=== PATIENT | male | born 1980 | race Hispanic/Latino ===

== ENCOUNTER 2022-05-23 11:41 | Emergency (ER) | payer BC, SELFPAY ==
[2022-05-23 11:55] VITALS: BP 124/84; PULSE 77; RESP 16; TEMP 37.2; O2SAT 99
--- NOTE | 2022-05-23 12:00 | ED.URI ---
HPI - URI/Sore Throat General Chief Complaint: Upper Respiratory Infection Stated Complaint: sore throat, head congestion, runny nose Time Seen by Provider: 05/23/22 12:06 Source: patient and RN notes reviewed Mode of arrival: ambulatory Limitations: no limitations History of Present Illness HPI Narrative: 41 y/o male presented for c/o headache, body aches, sinus pressure/congestion, cough, fever/chills. Onset yesterday. He did not take anything for symptoms today. Denies sob, wheezing, vomiting or diarrhea. Denies known sick contacts but has been air traveling for work. He is from [place]. elicited complaint: cough Related Data Home Medications Medication Instructions Recorded Confirmed No Home Medications 05/23/22 05/23/22 Allergies Allergy/AdvReac Type Severity Reaction Status Date / Time No Known Allergies Allergy Verified 05/23/22 12:12 Review of Systems Review of Systems: CONSTITUTIONAL: Endorses malaise, chills, sweats, fever EYES: Denies visual changes, redness, or discharge ENT: per HPI CARDIOVASCULAR: Denies chest pain, palpitations, edema RESPIRATORY: Reports cough, post nasal drainage. Denies dyspnea GASTROINTESTINAL: Denies abdominal pain, nausea, vomiting, diarrhea SKIN: Denies rash or itching MUSCULOSKELETAL: Endorses myalgia NEUROLOGIC: Endorses headache Exam Narrative: GENERAL: Ill-appearing, nontoxic EYES: PERRLA, conjunctivae clear ENT: Mucous membranes moist. TMs pearly kinsey with dull light reflex bilaterally; no tragal tenderness. Oropharynx erythematous without lesions or exudate CHEST: Clear to auscultation, breath sounds equal. HEART: Regular rate and rhythm. No murmur heard. SKIN: Warm, dry, no rash. NEURO: Alert and oriented x3. PSYCH: Normal mood and affect Course Course Emergency Course: Patient is aware of diagnosis, understands and agrees to treatment plan. Anticipatory guidance given. Patient agrees to follow-up as directed and is aware of reasons to seek care at the emergency department. Portions of this record may have been created with voice recognition software Level of Care: Express Care Visit Vital Signs Vital signs: Vital Signs Temperature 99 F 05/23/22 11:55 Pulse Rate 77 05/23/22 11:55 Respiratory Rate 16 05/23/22 11:55 Blood Pressure 124/84 05/23/22 11:55 Pulse Oximetry 99 05/23/22 11:55 Oxygen Delivery Room Air 05/23/22 11:55 Temperature 99 F 05/23/22 11:55 Pulse Rate 77 05/23/22 11:55 Respiratory Rate 16 05/23/22 11:55 Blood Pressure 124/84 05/23/22 11:55 Pulse Oximetry 99 05/23/22 11:55 Oxygen Delivery Room Air 05/23/22 11:55 reviewed MDM - URI/Sore Throat MDM Narrative Medical decision making narrative: covid and flu negative. Patient is aware it may be too early to detect the virus. Advised supportive measures and signs/symptoms to go to the ER. Pt is appropriate for outpt treatment and f/u. Differential Diagnosis Differential diagnosis: Likely upper respiratory infection, sinusitis, viral infection and influenza Lab Data Labs: Lab Results 05/23/22 Range/Units 12:00 POC SARS CoV-2 Ag Negative (Negative) Influenza A Screen Negative Reference Range: Negative Influenza B Screen Negative Reference Range: Negative Discharge Plan Discharge Clinical Impression: Viral infection Patient Disposition: Home, Self-Care Condition: Stable Instructions: Viral Syndrome (ED) Additional Instructions: Your rapid covid test was negative today. It may be too early to detect the virus, therefore we recommend retesting at home in 1-2 days Continue to follow general precautions: frequent handwashing, wear a mask, isolate/social distance, and avoid crowds if you have a fever. You must be fever free for 24 hours without the use of fever reducing medication (Tyleno
== END 2022-05-23 12:40 | disposition home or self-care (01) ==
PROVIDERS: Emergency Provider Nurse Practitioner Family
DX: B34.9 Viral infection, unspecified (principal); Z20.822 Contact with and (suspected) exposure to COVID-19
CPT/HCPCS: 87426; 87804; 99213; C9803; G0463